=== PATIENT | female | born 1935 | race Caucasian/White ===

== ENCOUNTER → 2020-07-17 | Outpatient (CLI) | payer MEDICARE, BC, MEDICAID ==
[~2020-07-17] MED LIST: CALCIUM; CHOL10003 PO; ENAL20TA PO; HCTZ12.5T PO; METF500T8 PO; OMEG1CAP51 PO; ROSU20TA14 PO
--- NOTE | 2020-07-17 15:15 | Diagnostic Imaging Report ---
INDICATION: Choking during eating. TECHNIQUE: The study was performed in conjunction with Speech Pathology. Video fluoroscopy was performed during the swallowing of barium in multiple consistencies. The patient was given thin liquid as well as applesauce, banana, ground beef, and cracker consistency. A total of 1 minute and 16 seconds of fluoroscopic time was utilized. FINDINGS: The oral phase is unremarkable. There is normal epiglottic tilt and laryngeal elevation. No laryngeal penetration or aspiration was observed. No residue was detected. IMPRESSION: Unremarkable modified barium swallow. Dictated by: Dictated on workstation # [id number]
== END ==
LOC: RAD 09:55
PROVIDERS: ATTEND Family Medicine
DX: R13.13 Dysphagia, pharyngeal phase (principal)
CPT/HCPCS: 74230

== ENCOUNTER 2022-10-09 16:10 | Outpatient (CLI) | payer MEDICARE, BC, MEDICAID ==
[~2022-10-09] VITALS: Ht 152.4 cm; Wt 66.4 kg
[2022-10-09] MEDS ORDERED: METH35.42 TP (16:29)
[2022-10-09] MEDS ORDERED: ACET-168 PO (16:29)
[2022-10-09] MEDS ORDERED: NEOM1OIN19 TP (16:29)
[2022-10-09] MEDS ORDERED: AMLO-251 PO (16:29)
[2022-10-09] MEDS ORDERED: CARB15DR2 OP (16:29)
[2022-10-09] MEDS ORDERED: PHEN-832 PO (16:29)
[2022-10-09] MEDS ORDERED: CALC500T7 PO (16:29)
[2022-10-09] MEDS ORDERED: LOPE-134 PO (16:29)
[2022-10-09] MEDS ORDERED: METO50TA7 PO (16:29)
[2022-10-09] MEDS ORDERED: MAGN400O7 PO (16:29)
[2022-10-09] MEDS ORDERED: GUAI-585 PO (16:29)
[2022-10-09] MEDS ORDERED: IBUP-1779 PO (16:29)
[2022-10-09] MEDS ORDERED: DIPH25CA79 PO (16:29)
[2022-10-09] MEDS ORDERED: HC A30CR4 RC (16:29)
[2022-10-09] MEDS ORDERED: LISI20TA26 PO (16:29)
[2022-10-10] MEDS ORDERED: TRM50T PO (10:17)
== END 2022-10-09 17:03 | disposition home or self-care (01) ==
LOC: PREOP 16:10
PROVIDERS: ATTEND Surgery
DX: Z01.818 Encounter for other preprocedural examination (principal)

== ENCOUNTER → 2022-10-10 | Day surgery (SDC) | payer MEDICARE, BC, MEDICAID ==
[~2022-10-10] MED LIST changes: +ACET-168 PO; +ACETAMINOPHEN 325 MG TABLET PO PRN; +AMLO-251 PO; +CALC500T7 PO; +CARB15DR2 OP; +DIPH25CA79 PO; +GUAI-585 PO; +HC A30CR4 RC; +IBUP-1779 PO; +LISI20TA26 PO; +LOPE-134 PO; +MAGN400O7 PO; +METH35.42 TP; +METO50TA7 PO; +NEOM1OIN19 TP; +ONDANSETRON 4 MG/2 ML (SDV) Z0FRAN IVP PRN; +PHEN-832 PO; +TRM50T PO; +ceFAZolin 1 GM/NS 50 ML (SDC/OR ONLY) IV ONE; +fentaNYL INJ 100 MCG/2 ML AMP IVP PRN
--- NOTE | 2022-10-10 10:19 | Discharge Inst-Surgical ---
D/C Lap Instructions-BRENDAO Reconcile Patient Problems Problems Reviewed?: Yes New, Converted, or Re-Newed RX: RX on Chart Follow Up Appt in 2 weeks Activity as tolerated No driving while on pain medications Regular Diet Symptoms to Report: Fever over 101 degree F, Nausea/Vomiting Infection Signs and Symptoms to report: Increased redness, Foul odor of wound, Increased drainage Bathing instructions: May shower Operative Area Clean/Dry; Keep incision clean/dry, Do not soak incision in bathtub, hot tub, or pool, etc. If any problems/questions: Contact your physician or go to Emergency Room NAVARRO LORENZO B[employer] TALKING BOOKS CLERK Oct 10, 2022 10:19
--- NOTE | 2022-10-10 10:20 | Progress Note-Pre Operative ---
Pre-Operative Progress Note Date H&P Reviewed: Oct 10, 2022 Time H&P Reviewed: 10:15 History & Physical: H&P Reviewed, Patient Examed, No changes noted Pre-Operative Diagnosis: large symptomatic skin lesion left inner thigh NAVARRO LORENZO APRN Oct 10, 2022 10:20
== END | disposition home or self-care (01) ==
LOC: SDC 10:05
PROVIDERS: ATTEND Surgery
DX: L98.8 Other specified disorders of the skin and subcutaneous tissue (principal); Z53.8 Procedure and treatment not carried out for other reasons
CPT/HCPCS: 82947

== ENCOUNTER 2022-10-16 09:25 | Outpatient (CLI) | payer MEDICARE, BC, MEDICAID ==
[~2022-10-16] VITALS: Ht 152.4 cm; Wt 66.4 kg
[~2022-10-16 09:25] MED LIST changes: -ACETAMINOPHEN 325 MG TABLET PO PRN; -ONDANSETRON 4 MG/2 ML (SDV) Z0FRAN IVP PRN; -ceFAZolin 1 GM/NS 50 ML (SDC/OR ONLY) IV ONE; -fentaNYL INJ 100 MCG/2 ML AMP IVP PRN
[2022-10-17] MEDS ORDERED: TRM50T PO (14:45)
== END 2022-10-16 12:30 | disposition home or self-care (01) ==
LOC: PREOP 09:25
PROVIDERS: ATTEND Surgery
DX: Z01.818 Encounter for other preprocedural examination (principal)

== ENCOUNTER 2022-10-17 13:31 | Day surgery (SDC) | payer MEDICARE, BC, MEDICAID ==
[2022-10-17] VITALS (10 sets, daily range): BP systolic 89–151; BP diastolic 43–74
[~2022-10-17] VITALS: Ht 152.4 cm; Wt 66.4 kg
[2022-10-17] MEDS ORDERED: BUP/EPI 0.5% 1:200,000 (SENSORCAINE) 30 ML VIAL ONE (14:07)
[2022-10-17] MEDS ORDERED: NS (IVPB) 50 ML ONE (14:20)
[2022-10-17] MEDS ORDERED: ceFAZolin INJECTION 1,000 MG ONE (14:20)
[2022-10-17] MEDS ORDERED: ceFAZolin INJECTION 1,000 MG in NS (IVPB) 50 ML IV ONE (14:30)
[2022-10-17] MEDS ORDERED: LACTATED RINGERS 1,000 ML IV PRN (14:30)
--- NOTE | 2022-10-17 14:42 | Progress Note-Pre Operative ---
Pre-Operative Progress Note Date H&P Reviewed: Oct 17, 2022 Time H&P Reviewed: 14:40 History & Physical: H&P Reviewed, Patient Examed, No changes noted Pre-Operative Diagnosis: Left inner thigh lesion NAVARRO LORENZO APRN Oct 17, 2022 14:42
[2022-10-17] MEDS ORDERED: proPOfol 200 MG/20 ML (DIPRIVAN) VIAL IV ONE (14:44)
[2022-10-17] MEDS ORDERED: LIDOCAINE PF 2% 5 ML (XYLOCAINE) VIAL ONE (14:44)
[2022-10-17] MEDS ORDERED: fentaNYL INJ 100 MCG/2 ML AMP ONE (14:44)
[2022-10-17] MEDS ORDERED: ONDANSETRON 4 MG/2 ML (SDV) Z0FRAN ONE (14:44)
[2022-10-17] MEDS ORDERED: SEVOFLURANE (ULTANE) 15 ML INHAL SOLN ONE ×2 (14:44→15:29)
[2022-10-17] MEDS ORDERED: morphine INJ 10 MG/ML 1ML (SYR OR VIAL) IVP PRN (14:45)
[2022-10-17] MEDS ORDERED: TRM50T PO (14:45)
[2022-10-17] MEDS ORDERED: ONDANSETRON 4 MG/2 ML (SDV) Z0FRAN IVP PRN ×2 (14:45→16:00)
[2022-10-17] MEDS ORDERED: ACETAMINOPHEN 325 MG TABLET PO PRN (14:45)
--- NOTE | 2022-10-17 14:46 | Discharge Inst-Surgical ---
D/C Lap Instructions-KIDO Reconcile Patient Problems Problems Reviewed?: Yes New, Converted, or Re-Newed RX: RX on Chart Follow Up Appt in 2 weeks Activity as tolerated No driving for 24 hours No driving while on pain medications Incentive Spirometry use every 2 hours while awake Regular Diet Symptoms to Report: Fever over 101 degree F, Nausea/Vomiting Infection Signs and Symptoms to report: Increased redness, Foul odor of wound, Increased drainage Bathing instructions: May shower Operative Area Clean/Dry; Keep incision clean/dry If any problems/questions: Contact your physician or go to Emergency Room NAVARRO LORENZO APRN Oct 17, 2022 14:46
--- NOTE | 2022-10-17 15:35 | Progress Note-Post Operative ---
Post-Operative Progess Note Surgeon (s)/Green Feed Attendant (s) Surgeon SUZANNE ALEJANDRA MD Green Feed Attendant: patrick mcbride HOME HEALTH CLINICAL SUPERVISOR Pre-Operative Diagnosis Left sx perineal lesion 7x4cm Post-Operative Diagnosis same. Procedure & Operative Findings Date of Procedure 10/17/22 Procedure Performed/Findings excision lesion left perineum including skin subcuteous, fascia 7x4cm with complex lateral flap closure. Anesthesia Type mac Estimated Blood Loss Estimated blood loss (mL): minimal Specimens/Packing Specimens Removed left perineal lesion. SUZANNE ALEJANDRA MD Oct 17, 2022 15:35
--- NOTE | 2022-10-17 15:54 | Anesthesia-General Post-Op ---
MAC Patient Condition Mental Status/LOC: Same as Preop Cardiovascular: Satisfactory Nausea/Vomiting: Absent Respiratory: Satisfactory Pain: Controlled Complications: Absent Post Op Complications Complications None Follow Up Care/Instructions Patient Instructions None needed. Anesthesiology Discharge Order Discharge Order Patient is doing well, no complaints, stable vital signs, no apparent adverse anesthesia problems. No complications reported per nursing. CHRISTIANA RAMIREZ VARNISHER Oct 17, 2022 15:54
[2022-10-17] MEDS ORDERED: MEPERIDINE (DEMEROL) INJ 50 MG/ML IVP ONE (16:00)
[2022-10-17] MEDS ORDERED: morphine INJ 10 MG/ML 1ML (SYR OR VIAL) IVP ONE (16:00)
[2022-10-17] MEDS ORDERED: fentaNYL INJ 100 MCG/2 ML AMP IVP ONE (16:00)
--- NOTE | 2022-10-17 23:01 | OPERATIVE REPORT ---
DATE OF SERVICE: 10/17/2022 ATTENDING PRIMARY CARE PHYSICIAN: Italo Smith MD PREOPERATIVE DIAGNOSIS: Symptomatic left perineal lesion 7 x 4 cm in size. POSTOPERATIVE DIAGNOSIS: Symptomatic left perineal lesion 7 x 4 cm in size. PROCEDURE: Excision of left perineal lesion including the lesion skin, subcutaneous tissue and the fascia, 7 x 4 cm in size. Complex flap closure 7x4cm. SURGEON: Suzanne Alejandra MD. SURGEON: Suzanne Alejandra MD FAMILY PHYSICIAN: Italo Banda APRN ANESTHESIA: General laryngeal mask airway. ESTIMATED BLOOD LOSS: Minimal. FINDINGS: Symptomatic left perineal lesion 7 x 4 cm in size. DISPOSITION: The patient tolerated the procedure well. INDICATIONS: The patient is an 87-year-old female who is a resident of [facility]. She was referred to us by her physician for a symptomatic lesion of the left perineum. This was discovered by her primary care physician and the staff had reported it has become symptomatic with intermittent episodes of bleeding. Upon examination, a large raised lesion, oval in shape was identified of the left perineum, which was also pigmented as well. The lesion was measured out to be 7 x 4 cm in size. This may represent some form of malignancy. DESCRIPTION OF PROCEDURE: The patient was brought to the operating room, laid supine on the table. After adequate IV pain and sedative medications and general laryngeal mask airway intubation, the patient was then placed in modified Trendelenburg position as well and the perineum prepped and draped in standard surgical fashion. A 0.5% Marcaine with epinephrine was then used to anesthetize the overlying skin in the left perineum and the lesion was then excised to normal-appearing skin using a #15 blade. We then proceeded with dissection of the entire lesion to encompassing the subcutaneous tissue and the fascia using electrocautery. Good hemostasis was observed. We then proceeded to develop lateral flaps at the level of fascia using electrocautery. Subcutaneous tissue was then reapproximated using 3-0 Vicryl interrupted sutures. This was done in 2 layers and then the skin was closed using 3-0 nylon interrupted sutures. Good hemostasis was observed. The wound was then cleaned and covered with gauze, followed by ABD, followed by mesh shorts. The patient tolerated the procedure well. The staff will be instructed to keep the area clean and dry and to apply a gauze dressing after every micturition or defecation as well as at least on a b.i.d. basis. We will have her follow up in the office in approximately 2 weeks to potentially remove some or all of the external sutures as well as to discuss the pathology results. Job ID: [id number] DocumentID: [id number] Dictated Date: 10/17/2022 15:42:39 [employer] Type Screw Machine Operator Date: 10/17/2022 22:59:00 Dictated By: SUZANNE ALEJANDRA MD MTDD
== END 2022-10-17 17:30 | disposition home or self-care (01) ==
LOC: SDC 13:31
PROVIDERS: ATTEND Surgery
DX: C44.510 Basal cell carcinoma of anal skin (principal); L98.8 Other specified disorders of the skin and subcutaneous tissue
CPT/HCPCS: 82947; 87081